=== PATIENT | female | born 1940 | race Caucasian/White ===

== ENCOUNTER 2018-03-08 16:47 | Emergency (ER) | payer MEDICARE ==
[~2018-03-08] VITALS: Ht 165.1 cm; Wt 80.0 kg
[~2018-03-08 16:47] MED LIST: ATOR80TA PO; ENAL10TA7 PO; ENAL20TA81 PO; ENOX40P SQ; FLON0.053; HYDR-3129 PO; LORTA5 PO
[2018-03-08 16:50] VITALS: BP 186/81; PULSE 87; RESP 16; TEMP 98.3; O2SAT 96
[2018-03-08] MEDS ORDERED: PROPOFOL 200 MG/20 ML AMP IV ONE ×2 (17:15→20:00)
[2018-03-08] MEDS ORDERED: ASPI81CH6 CHEW (17:21)
[2018-03-08] MEDS ORDERED: ALLO100T PO (17:21)
[2018-03-08] MEDS ORDERED: ATOR20TA15 PO (17:21)
[2018-03-08] MEDS ORDERED: ESTR0.5T PO (17:21)
[2018-03-08] MEDS ORDERED: LISI10TA3 PO (17:21)
--- NOTE | 2018-03-08 18:03 | PD ---
HPI Chief Complaint: Hip Injury Time Seen by Provider: 17:02 Travel History International Travel<30 days: No Contact w/Intl Traveler<30days: No Traveled to known affect area: No History of Present Illness HPI 77-year-old female that presents to the ED via ambulance for evaluation of left hip injury. 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 Per patient is been 2 years since this happened. She has no history of injuries that basically she was bending down to picker something when she felt a pop on her left hip and she almost fell. She was told to stop herself as she does have rales on the side of the [place]. She was able to prevent herself from falling and hitting her head. She denies getting anything else. She has pain on the left hip. She was given IV morphine. She denies any chest pain or shortness of breath. No back or neck pain. Allergies to meperidine and strawberry. No urinary or bowel movement issues. Pain per patient is currently 4 out of 10. She is not able to move her left hip secondary to dislocation. She denies any other injuries. She had it done by Dr. Soto two years ago at this hospital. No issues since. PFSH Past Medical History Arthritis: Yes Asthma: Yes Autoimmune Disease: No Blood Disorders: No Anxiety: No Depression: No Heart Rhythm Problems: No Cancer: No Cardiovascular Problems: No High Cholesterol: Yes Chemotherapy: No Chest Pain: No Congestive Heart Failure: No COPD: No Cerebrovascular Accident: No Diabetes: No Diminished Hearing: No Endocrine: No Gastrointestinal Disorders: Yes (reflux) GERD: No Glaucoma: No Genitourinary: No Headaches: Yes Hepatitis: No Hiatal Hernia: Yes (ok now) Hypertension: Yes Immune Disorder: No Kidney Stones: No Musculoskeletal: Yes (arthritis neck and back problems) Neurologic: No Psychiatric: No Reproductive: No Respiratory: Yes (copd) Migraines: No Myocardial Infarction: No Radiation Therapy: No Renal Failure: No Seizures: No Sickle Cell Disease: No Sleep Apnea: No Thyroid Disease: No Ulcer: No Past Surgical History Abdominal Surgery: Yes (esophageal repair) AICD: No Appendectomy: No Arteriovenous Shunt: No Cardiac Surgery: No Cholecystectomy: No Ear Surgery: No Endocrine Surgery: No Eye Surgery: Yes (rema cataract surgery) Genitourinary Surgery: No Gynecologic Surgery: Yes (hysterectomy) Hysterectomy: Yes Insulin Pump: No Joint Replacement: No Oral Surgery: Yes (t and a) Pacemaker: No Thoracic Surgery: No Tonsillectomy: Yes Other Surgery: Yes (esophagus repair 35 yrs ago) Social History Alcohol Use: No Tobacco Use: No Substance Use: No Allergies-Medications (Allergen,Severity, Reaction): Coded Allergies: strawberry (Unverified Allergy, Severe, 06/06/17) meperidine (Unverified Adverse Reaction, Severe, NAUSEA AND VOMITING, 06/06) Reported Meds & Prescriptions Reported Meds & Active Scripts Active Hydrocodone-Acetaminophen 5-325 mg Tab 1 Tab PO Q6H PRN Reported Allopurinol 100 Mg Tab 100 Mg PO DAILY Aspirin Low Dose (Aspirin) 81 Mg Chew 81 Mg CHEW DAILY Atorvastatin (Atorvastatin Calcium) 20 Mg Tab 20 Mg PO HS Lisinopril 10 Mg Tab 10 Mg PO DAILY Review of Systems Except as stated in HPI: all other systems reviewed are Neg Physical Exam Narrative GENERAL: SKIN: Warm and dry. HEAD: Atraumatic. Normocephalic. EYES: Pupils equal and round. No scleral icterus. No injection or drainage. ENT: No nasal bleeding or discharge. Mucous membranes pink and moist. Tongue is midline. No uvula deviation. NECK: Trachea midline. No JVD. CARDIOVASCULAR: Regular rate and rhythm. No murmurs, S3, S4. RESPIRATORY: No accessory muscle use. Clear to auscultation. Breath sounds equal bilaterally. GASTROINTESTINAL: Abdomen soft, non-tender, nondistended. Hepatic and splenic margins not palpable. MUSCULOSKELETAL: Extremities without clubbing, cyanosis, or edema. No obvious deformities. Full range of motion of the upper and lower extremities bilaterally. 2+ pulses bilaterally. NEUROLOGICAL: Awake and alert. No obvious cranial nerve deficits. Motor grossly within normal limits. Five out of 5 muscle strength in the arms and legs. Normal speech. PSYCHIATRIC: Appropriate mood and affect; insight and judgment normal. Data Data Last Documented VS Vital Signs Date Time Temp Pulse Resp B/P (MAP) Pulse Ox O2 Delivery O2 Flow Rate FiO2 03/08/18 20:12 67 20 168/78 (108) 98 03/08/18 19:01 2.00 03/08/18 18:37 Nasal Cannula 03/08/18 16:50 98.3 Orders Orders Hip, Uni(Ap&Lat) W Ap Pelvis (03/08/18 17:15) Ice/Cold Pack (03/08/18 17:15) Splint Or Brace Apply/Monitor (03/08/18 17:15) Propofol 200 Mg/20 Ml Inj (Diprivan 200 (03/08/18 17:15) Hip, Ap Only Wo Ap Pelvis (03/08/18 18:52) Hip, Ap Only Wo Ap Pelvis (03/08/18 ) Hip, Ap Only Wo Ap Pelvis (03/08/18 ) Propofol 200 Mg/20 Ml Inj (Diprivan 200 (03/08/18 20:00) Ed Discharge Order (03/08/18 20:30) [facility] Medical Decision Making Medical Screen Exam Complete: Yes Emergency Medical Condition: Yes Medical Record Reviewed: Yes Interpretation(s) Last Impressions Hip and Pelvis X-Ray 03/08/18 3325 Signed Impressions: Service Date/Time: , March 08, 2018 17:42 - CONCLUSION: Dislocation of the femoral component of the left hip prosthesis. Eben Izaguirre MD Hip xray of left hip did showed successful reduction read by me and attending. Differential Diagnosis Hip dislocation versus hip fracture versus hip pain versus chronic pain Narrative Course 77-year-old female that presents to the ED for evaluation of left hip injury. Patient was properly examined and was found to have signs and symptoms consistent with dislocation. Imaging was ordered. IV was started. Imaging showed dislocation. My attending Dr. Irving and Dr. Mar were made aware of findings and agree with need for reduction. IV propofol was ordered. Conscious sedation paperwork was filled. Please refer to my attendings note. My attending Dr. Mar was able to successfully reduce the hip after a thorough trial. X-rays were done and did show reduction. Patient was put on splint. Patient was told that she is to follow with her surgeon for further evaluation. Given prescription for Lortab for pain. IVETTE worsening symptoms. Follow-up with PCP. Diagnosis Primary Impression: Hip dislocation, left Qualified Codes: S73.005A - Unspecified dislocation of left hip, initial encounter Referrals: Wesley Soto MD Patient Instructions: General Instructions, Narcotic given in the ED Additional Instructions: Take medications as prescribed. Follow-up with ortho. See ED for any worsening symptoms. Do not drink or drive while taking pain medication. Apply ice or heat as needed for pain Med/Other Pt SpecificInfo: Prescription(s) given Scripts Hydrocodone-Acetaminophen (Hydrocodone-Acetaminophen) 5-325 mg Tab 1 TAB PO Q6H Y for PAIN, #12 TAB 0 Refills Prov: Ruperto Avila MD 03/08/18 Disposition: 01 DISCHARGE HOME Condition: Percy Kahn March 08, 2018 18:03
--- NOTE | 2018-03-08 18:16 | RADRPT ---
EXAM DATE/TIME: 03/08/2018 17:42 [facility] COMPARISON: HIP LEFT (AP&LAT 2/3VWS) W AP PELVIS, September 30, 2016, 15:49. INDICATIONS : Dislocation. MEDICAL HISTORY : None. SURGICAL HISTORY : Hip arthroplasty, left. ENCOUNTER: Initial ACUITY: 1 day PAIN SCORE: 6/10 LOCATION: Left Hip. FINDINGS: There is left hip prosthesis in place. The femoral component is dislocated superiorly. No fracture is seen. CONCLUSION: Dislocation of the femoral component of the left hip prosthesis. Eben Izaguirre MD on March 08, 2018 at 18:12 Board Certified Radiologist. This report was verified electronically.
[2018-03-08 18:37] VITALS: O2SAT 98
[2018-03-08 19:01] VITALS: O2SAT 98
--- NOTE | 2018-03-08 19:35 | PD ---
Data Data Last Documented VS Vital Signs Date Time Temp Pulse Resp B/P (MAP) Pulse Ox O2 Delivery O2 Flow Rate FiO2 03/08/18 18:37 98 Nasal Cannula 3.00 03/08/18 16:50 98.3 87 16 186/81 (116) Orders Orders Hip, Uni(Ap&Lat) W Ap Pelvis (03/08/18 17:15) Ice/Cold Pack (03/08/18 17:15) Splint Or Brace Apply/Monitor (03/08/18 17:15) Propofol 200 Mg/20 Ml Inj (Diprivan 200 (03/08/18 17:15) Hip, Ap Only Wo Ap Pelvis (03/08/18 18:52) Hip, Ap Only Wo Ap Pelvis (03/08/18 ) Hip, Ap Only Wo Ap Pelvis (03/08/18 ) MDM Supervised Visit with COLBY: Yes Narrative Course Assisted with hip reduction. Procedures Procedure Narrative Hip reduction: Requested to assist Dr. Irving with hip reduction. Reviewed chart, reviewed complaints, reviewed informed consent, repeated Mallampati score and pre- assessment. Reviewed informed consent with the patient. Patient was given propofol, multiple attempts were needed. Initially using axial traction direct with some manipulation, was unsuccessful in reducing the hip. 2 attempts initially tried. Third attempt using "Captain Dionte" technique with successful reduction of the hip. Patient tolerated well. No complications. After the risks and benefits were discussed the following procedure was performed: MODERATE SEDATION: The patient was placed on a monitoring tech and pulse oximetry. An ambu bag and suction was immediately available at bedside. The patient was monitored by the nurse. Oxygen saturation, heart rate and blood pressure were monitored. Procedural sedation was acheived using propofol. The patient was observed until awake and alert. Procedural Sedation time in attendance was 25 minutes. Chavo Mar MD March 08, 2018 19:35
[2018-03-08 20:12] VITALS: BP 168/78; PULSE 67; RESP 20; O2SAT 98
[2018-03-08] MEDS ORDERED: HYDR-3516 PO (20:31)
--- NOTE | 2018-03-08 20:31 | RADRPT ---
EXAM DATE/TIME: 03/08/2018 19:01 [facility] COMPARISON: HIP LEFT AP ONLY WO AP PELVIS, March 08, 2018, 19:24. INDICATIONS : Post reduction. MEDICAL HISTORY : None. SURGICAL HISTORY : Hip arthroplasty, left. ENCOUNTER: Subsequent ACUITY: 1 day PAIN SCORE: Non-responsive. LOCATION: Left hip. FINDINGS: Examination of the hip demonstrates persistent superior dislocation of the femoral component of the h ip prosthesis. CONCLUSION: Persistent superior dislocation. Eben Izaguirre MD on March 08, 2018 at 20:29 Board Certified Radiologist. This report was verified electronically.
--- NOTE | 2018-03-08 20:39 | RADRPT ---
EXAM DATE/TIME: 03/08/2018 19:24 [facility] COMPARISON: HIP LEFT AP ONLY WO AP PELVIS, March 08, 2018, 19:14. INDICATIONS : Post reduction. MEDICAL HISTORY : None. SURGICAL HISTORY : Total left hip. ENCOUNTER: Subsequent ACUITY: 1 day PAIN SCORE: Non-responsive. LOCATION: Left hip. FINDINGS: There's been successful reduction of the previously seen femoral component dislocation. The hip prost hesis appears normally aligned. CONCLUSION: Successful reduction of the previously seen femoral component dislocation. Eben Izaguirre MD on March 08, 2018 at 20:37 Board Certified Radiologist. This report was verified electronically.
--- NOTE | 2018-03-08 20:39 | RADRPT ---
EXAM DATE/TIME: 03/08/2018 19:14 [facility] COMPARISON: HIP LEFT AP ONLY WO AP PELVIS, March 08, 2018, 19:01. INDICATIONS : Post reduction left hip. MEDICAL HISTORY : Unobtainable. SURGICAL HISTORY : Unobtainable. ENCOUNTER: Subsequent ACUITY: 1 day PAIN SCORE: Non-responsive. LOCATION: Left hip FINDINGS: There is persistent superior dislocation of the femoral component of a left hip prosthesis. CONCLUSION: Persistent dislocation of the femoral component. Eben Izaguirre MD on March 08, 2018 at 20:37 Board Certified Radiologist. This report was verified electronically.
--- NOTE | 2018-03-10 05:40 | PD ---
Data Data Last Documented VS Vital Signs Date Time Temp Pulse Resp B/P (MAP) Pulse Ox O2 Delivery O2 Flow Rate FiO2 03/08/18 20:58 03/08/18 20:12 67 20 98 03/08/18 19:01 2.00 03/08/18 18:37 Nasal Cannula 03/08/18 16:50 98.3 Orders Orders Hip, Uni(Ap&Lat) W Ap Pelvis (03/08/18 17:15) Ice/Cold Pack (03/08/18 17:15) Splint Or Brace Apply/Monitor (03/08/18 17:15) Propofol 200 Mg/20 Ml Inj (Diprivan 200 (03/08/18 17:15) Hip, Ap Only Wo Ap Pelvis (03/08/18 18:52) Hip, Ap Only Wo Ap Pelvis (03/08/18 ) Hip, Ap Only Wo Ap Pelvis (03/08/18 ) Propofol 200 Mg/20 Ml Inj (Diprivan 200 (03/08/18 20:00) Ed Discharge Order (03/08/18 20:30) Immobilizer Knee 20 Inch (03/08/18 ) MDM Supervised Visit with COLBY: Yes Narrative Course The history, exam, and medical decision-making in the associated midlevel provider note were completed with my assistance. I reviewed and agree with the findings presented. I attest that I had a [id number] encounter with the patient on the same day, and personally performed and documented my assessment and findings in the medical record. *My assessment and Findings: This is a 77-year-old female who presents to the emergency department having sustained a left hip dislocation. Conscious sedation was performed by Dr. Mar and the hip was relocated following several attempts. Patient tolerated the procedure well and x-ray confirmed successful reduction. Patient was discharged home to follow-up with her orthopedic surgeon. Diagnosis Primary Impression: Hip dislocation, left Qualified Codes: S73.005A - Unspecified dislocation of left hip, initial encounter Referrals: Wesley Soto MD Patient Instructions: General Instructions, Narcotic given in the ED, Moderate Sedation (ED), Hip Dislocation (ED) Departure Forms: Tests/Procedures Additional Instruction: Take medications as prescribed. Follow-up with ortho. See ED for any worsening symptoms. Do not drink or drive while taking pain medication. Apply ice or heat as needed for pain Scripts Hydrocodone-Acetaminophen (Hydrocodone-Acetaminophen) 5-325 mg Tab 1 TAB PO Q6H Y for PAIN, #12 TAB 0 Refills Prov: Ruperto Avila MD 03/08/18 Disposition: 01 DISCHARGE HOME Condition: Stable Shannan Irving MD March 10, 2018 05:40
== END 2018-03-08 20:58 | disposition home or self-care (01) ==
LOC: NEPC 16:47
DX: T84.021A Dislocation of internal left hip prosthesis, initial encounter (principal)
CPT/HCPCS: 27250; 73501; 73502; 96374; 96376; 99152; 99153; 99285; L1830